=== PATIENT | male | born 1965 | race Native Hawaiian/Other Pacific Islander ===

== ENCOUNTER 2019-01-12 19:42 | Outpatient (CLI) | payer OTHER | END 2019-01-12 19:54 | disposition short-term general hospital (02) | LOC: AMB 19:42 | DX: R10.9 Unspecified abdominal pain (principal); R11.2 Nausea with vomiting, unspecified; R42 Dizziness and giddiness | CPT/HCPCS: A0425; A0427 ==

== ENCOUNTER 2019-01-12 20:07 | Emergency (ER) | payer OTHER ==
[~2019-01-12] VITALS: Ht 170.2 cm; Wt 90.7 kg
[2019-01-12 20:07] VITALS: TEMP 97.7
[2019-01-12 21:13] LABS: POTASSIUM 4.2 mmol/L (3.6-5.2); SODIUM 137 mmol/L (136-145)
[2019-01-12 21:14] LABS: PLATELET COUNT 166 K/uL (142-355)
[2019-01-12 23:51] VITALS: BP 144/96
== END 2019-01-12 23:52 | disposition home or self-care (01) ==
LOC: ED 20:07
PROVIDERS: Emergency Medicine
DX: K52.89 Other specified noninfective gastroenteritis and colitis (principal); E11.9 Type 2 diabetes mellitus without complications; R79.89 Other specified abnormal findings of blood chemistry; R00.1 Bradycardia, unspecified
CPT/HCPCS: 36415; 80053; 81000; 82150; 82550; 83690; 84443; 84480; 84484; 85027; 93005; 96360; 96375; 96376; 99284; J2175; J2550